=== PATIENT | female | born 1985 | race Caucasian/White ===

== ENCOUNTER 2016-12-09 13:47 | Emergency (ER) | payer BC, MEDICAID ==
[2016-12-09 15:25] VITALS: BP 122/69
--- NOTE | 2016-12-09 15:28 | UC ---
Throat Pain/Nasal Nguyễn HPI - HPI Summary HPI Summary: works a [employer] has had a sore throat, no fever for a couple of days - History of Current Complaint Chief Complaint: UCRespiratory Stated Complaint: SORE THROAT Time Seen by Provider: 12/09/16 15:26 Hx Obtained From: Patient Hx Last Menstrual Period: 12/05/16 ?: No Onset/Duration: Sudden Onset, Lasting Days - 2, Still Present Severity: Moderate Pain Intensity: 5 Pain Scale Used: 0-10 Numeric Cough: None Associated Signs & Symptoms: Positive: Hoarseness - Allergies/Home Medications Allergies/Adverse Reactions: Allergies Allergy/AdvReac Type Severity Reaction Status Date / Time Codeine Allergy Hives/Diff. Verified 12/09/16 15:25 Breathing/I tching NSAIDs AdvReac Severe CAN'T TAKE Verified 02/02/16 11:56 - GASTRIC BYPASS PMH/Surg Hx/FS Hx/Imm Hx Previously Healthy: No Endocrine History Of: Denies: Diabetes, Thyroid Disease Cardiovascular History Of: Denies: Cardiac Disorders, Hypertension Respiratory History Of: Denies: COPD, Asthma GI/ History Of: Denies: Ulcer - Surgical History Surgical History: Yes Surgery Procedure, Year, and Place: GASTRIC BYPASS 2004 - rou[place]n -[place]. Revision . [place] Teeth Other Surgical History: Gastric Bypass with revision - Family History Known Family History: Positive: None, Unknown Family History: no cardio vascular issues reported in family lineage - Social History Occupation: Employed Full-time Lives: With Family Alcohol Use: Rare Alcohol Amount: "socially" Substance Use Type: None, Prescribed Smoking Status (MU): Never Smoked Tobacco - Immunization History Most Recent Influenza Vaccination: last year Most Recent Tetanus Shot: utd Most Recent Pneumonia Vaccination: none Review of Systems Constitutional: Negative Skin: Negative Eyes: Negative ENT: Sore Throat Respiratory: Negative Cardiovascular: Negative Gastrointestinal: Negative Genitourinary: Negative Motor: Negative Neurovascular: Negative Musculoskeletal: Negative Neurological: Negative Psychological: Negative All Other Systems Reviewed And Are Negative: Yes Physical Exam Triage Information Reviewed: Yes Appearance: Well-Appearing, No Pain Distress, Obese Vital Signs: Initial Vital Signs Temp 97.8 F 12/09/16 15:20 Pulse 79 12/09/16 15:20 Resp 20 12/09/16 15:20 BP 122/69 04/06/17 15:20 Pulse Ox 100 12/09/16 15:20 Vital Signs Reviewed: Yes Eye Exam: Normal Eyes: Positive: Conjunctiva Clear ENT Exam: Normal ENT: Positive: Normal ENT inspection, Hearing grossly normal, Pharynx normal, TMs normal. Negative: Nasal congestion, Nasal drainage, Tonsillar swelling, Tonsillar exudate, Trismus, Muffled/hoarse voice Dental Exam: Normal Neck exam: Normal Neck: Positive: Supple, Nontender, No Lymphadenopathy Respiratory Exam: Normal Respiratory: Positive: Chest non-tender, Lungs clear, Normal breath sounds, No respiratory distress, No accessory muscle use Cardiovascular Exam: Normal Cardiovascular: Positive: RRR, No Murmur, Pulses Normal, Brisk Capillary Refill Musculoskeletal Exam: Normal Musculoskeletal: Positive: Strength Intact, ROM Intact, No Edema Neurological Exam: Normal Neurological: Positive: Alert, Muscle Tone Normal Psychological Exam: Normal Skin Exam: Normal Diagnostics - Laboratory Diagnostic Studies Completed/Ordered: RST(-) Throat Pain/Nasal Course/Dx - Course Assessment/Plan: tylenol, ibuprofen OTC cold remidies for symptom management follow with PCP - Differential Dx/Diagnosis Differential Diagnosis/HQI/PQRI: Influenza, Pharyngitis, Sinusitis, URI Provider Diagnoses: Viral Pharyngitis Discharge - Discharge Plan Condition: Stable Disposition: HOME Patient Education Materials: Laryngitis (ED), Viral Syndrome (ED) Referrals: No Shankar NP [Primary Care Provider] -
== END 2016-12-09 15:54 | disposition home or self-care (01) ==
LOC: UCEAST 13:47
DX: J02.9 Acute pharyngitis, unspecified (principal); Z88.5 Allergy status to narcotic agent; Z98.84 Bariatric surgery status
CPT/HCPCS: 87651; 99211; G0463

== ENCOUNTER 2017-01-05 14:15 | Emergency (ER) | payer BC, MEDICAID ==
[2017-01-05 14:55] VITALS: BP 134/83
--- NOTE | 2017-01-05 15:14 | UC ---
Bite Injury/Animal HPI - HPI Summary HPI Summary: Bitten by student at work in a school earlier today. Open areas on R 3rd finger and back of R hand. Denies pain or swelling. - History of Current Complaint Chief Complaint: UCUpperExtremity Stated Complaint: HAND INJURY BITE Time Seen by Provider: 01/05/17 15:00 Hx Obtained From: Patient Hx Last Menstrual Period: today started ?: No Severity Currently: Mild Severity Initially: Mild Onset/Duration: Sudden Onset Type of Bite: Human Has Animal Been Immunized?: Unknown Character: Puncture Alleviating Factor(s): Rest Associated Signs And Symptoms: Positive: Negative Animal Available for Observation: Yes Animal Control Notified: No - Risk Factors Infection/Sepsis Risk Factors: Negative - Allergies/Home Medications Allergies/Adverse Reactions: Allergies Allergy/AdvReac Type Severity Reaction Status Date / Time Codeine Allergy Hives/Diff. Verified 12/09/16 15:25 Breathing/I tching NSAIDs AdvReac Severe CAN'T TAKE Verified 02/02/16 11:56 - GASTRIC BYPASS Home Medications: Home Medications traMADol TAB* [Ultram*] 50 mg PO PRN 01/05/17 [History] PMH/Surg Hx/FS Hx/Imm Hx Previously Healthy: Yes Endocrine History Of: Denies: Diabetes, Thyroid Disease Cardiovascular History Of: Denies: Cardiac Disorders, Hypertension Respiratory History Of: Denies: COPD, Asthma GI/ History Of: Denies: Ulcer - Surgical History Surgical History: Yes Surgery Procedure, Year, and Place: GASTRIC BYPASS 2004 - [place]. Revision . [place] Te[facility] Other Surgical History: Gastric Bypass with revision - Family History Known Family History: Positive: None, Unknown Family History: no cardio vascular issues reported in family lineage - Social History Occupation: Employed Full-time Lives: With Family Alcohol Use: Rare Alcohol Amount: "socially" Substance Use Type: None Smoking Status (MU): Never Smoked Tobacco - Immunization History Most Recent Influenza Vaccination: last year Most Recent Tetanus Shot: utd Most Recent Pneumonia Vaccination: none Review of Systems Constitutional: Negative Skin: Other - bite to R hand Eyes: Negative ENT: Negative Respiratory: Negative Cardiovascular: Negative Gastrointestinal: Negative Genitourinary: Negative Motor: Negative Neurovascular: Negative Musculoskeletal: Negative Neurological: Negative Psychological: Negative All Other Systems Reviewed And Are Negative: Yes Physical Exam Triage Information Reviewed: Yes Appearance: Well-Appearing, No Pain Distress, Obese Vital Signs: Initial Vital Signs Temp 98.6 F 01/05/17 14:51 Pulse 84 01/05/17 14:51 Resp 16 01/05/17 14:51 BP 134/83 01/05/17 14:51 Pulse Ox 100 01/05/17 14:51 Vital Signs Reviewed: Yes Eye Exam: Normal Eyes: Positive: Conjunctiva Clear ENT Exam: Normal ENT: Positive: Normal ENT inspection, Hearing grossly normal, Pharynx normal, TMs normal Dental Exam: Normal Neck exam: Normal Neck: Positive: Supple, Nontender, No Lymphadenopathy Respiratory Exam: Normal Respiratory: Positive: Chest non-tender, Lungs clear, Normal breath sounds, No respiratory distress, No accessory muscle use Cardiovascular Exam: Normal Cardiovascular: Positive: RRR, No Murmur Musculoskeletal Exam: Normal Musculoskeletal: Positive: Strength Intact, ROM Intact, No Edema Neurological Exam: Normal Neurological: Positive: Alert Psychological Exam: Normal Skin Exam: Other - two small PW to dorsum of R hand, near 3rd PIP joint and near 3rd MCP. No bleeding, swelling, redness, drainage, or streaking. Bite Injury Course/Dx - Differential Dx/Diagnosis Provider Diagnoses: R hand bite wound. Elevated blood pressure due to stress Discharge - Discharge Plan Condition: Stable Disposition: HOME Prescriptions: Amoxicillin/Clavulanate TAB* [Augmentin TAB 875*] 875 mg PO BID #10 tab Patient Education Materials: Human Bite (ED) Additional Instructions: Come back right away if you develop significant redness, pain, swelling, or streaking from the area.
[2017-01-05] MEDS ORDERED: Tetan/Diph/Pertus SYR(Tdap)* 0.5 ML SYR(BOOSTRIX) use SYR IM ONE (15:18)
== END 2017-01-05 15:30 | disposition home or self-care (01) ==
LOC: UCEAST 14:15
DX: S61.431A Puncture wound without foreign body of right hand, initial encounter (principal); W50.3XXA Accidental bite by another person, initial encounter; Y93.89 Activity, other specified; Y92.219 Unspecified school as the place of occurrence of the external cause; Y99.0 Civilian activity done for income or pay; Z23 Encounter for immunization; R03.0 Elevated blood-pressure reading, without diagnosis of hypertension; E66.9 Obesity, unspecified; Z88.6 Allergy status to analgesic agent; Z88.5 Allergy status to narcotic agent; Z98.84 Bariatric surgery status
CPT/HCPCS: 36415; 86704; 86706; 90715; 96372; 99212; G0463

== ENCOUNTER 2017-02-08 15:40 | Emergency (ER) | payer BC, MEDICAID ==
[2017-02-08 15:55] VITALS: BP 147/74
--- NOTE | 2017-02-08 16:25 | UC ---
Complaint Female HPI - HPI Summary HPI Summary: 2 DAYS OF VAGINAL ITCHING. NOTICED ODOR TODAY. PT ON MENSES CURRENTLY. HAD SOME URINARY FREQUENCY BUT NO BURNING OR URGENCY. NO FEVER, BACK PAIN OR NAUSEA. FEELS A BIT BLOATED. - History Of Current Complaint Chief Complaint: UCGU Stated Complaint: PRIVATE-IRRITATION Time Seen by Provider: 02/08/17 16:08 Hx Obtained From: Patient Hx Last Menstrual Period: January 05, 2017..on mirina Onset/Duration: Gradual Onset, Lasting Days, Still Present Timing: Constant Severity Initially: Moderate Severity Currently: Moderate Pain Intensity: 6 Pain Scale Used: 0-10 Numeric Character: Burning Aggravating Factor(s): Urination Alleviating Factor(s): Nothing Associated Signs And Symptoms: Positive: Negative - Allergies/Home Medications Allergies/Adverse Reactions: Allergies Allergy/AdvReac Type Severity Reaction Status Date / Time Codeine Allergy Hives/Diff. Verified 02/08/17 15:55 Breathing/I tching NSAIDs AdvReac Severe CAN'T TAKE Verified 02/08/17 15:55 - GASTRIC BYPASS PMH/Surg Hx/FS Hx/Imm Hx Previously Healthy: Yes - Surgical History Surgical History: Yes Surgery Procedure, Year, and Place: GASTRIC BYPASS 2004 - rou[place]n [place]. Revision . [place] [facility] Other Surgical History: Gastric Bypass with revision - Family History Known Family History: Positive: Unknown - ADOPTED. PT DOES NOT KNOW FAM HX - Social History Alcohol Use: Rare Alcohol Amount: "socially" Substance Use Type: None Smoking Status (MU): Never Smoked Tobacco - Immunization History Most Recent Influenza Vaccination: last year Most Recent Tetanus Shot: utd Most Recent Pneumonia Vaccination: none Review of Systems Constitutional: Negative Respiratory: Negative Cardiovascular: Negative Gastrointestinal: Abdominal Pain Genitourinary: Other - VAGINAL IRRITATION, ODOR All Other Systems Reviewed And Are Negative: Yes Physical Exam Triage Information Reviewed: Yes Appearance: Well-Appearing, No Pain Distress, Well-Nourished, Obese Vital Signs: Initial Vital Signs Temp 98.1 F 02/08/17 15:52 Pulse 78 02/08/17 15:52 Resp 18 02/08/17 15:52 BP 147/74 02/08/17 15:52 Pulse Ox 100 02/08/17 15:52 Vital Signs Reviewed: Yes Eyes: Positive: Conjunctiva Clear ENT: Positive: Hearing grossly normal Neck: Positive: Supple Respiratory: Positive: No respiratory distress, No accessory muscle use Cardiovascular: Positive: Pulses Normal Abdomen Description: Positive: Soft, Other: - SUPRAPUBIC TTP. Negative: CVA Tenderness (R), CVA Tenderness (L), Distended, Guarding Musculoskeletal: Positive: No Edema Neurological: Positive: Alert Psychological: Positive: Age Appropriate Behavior Skin: Negative: rashes Diagnostics - Laboratory Diagnostic Studies Completed/Ordered: URINE DIP SP.GR. 1.030, 1+ LEUKS, TRACE BLOOD Complaint Female Dx - Differential Dx/Diagnosis Provider Diagnoses: VAGINITIS Discharge - Discharge Plan Condition: Stable Disposition: HOME Prescriptions: Metronidazole [Flagyl 500 MG TAB] 500 mg PO BID #14 tab Patient Education Materials: Bacterial Vaginosis (ED), Vaginitis (ED) Referrals: No Shankar NP [Primary Care Provider] - Additional Instructions: VAGINAL SWAB AND URINE SENT FOR TESTING. WE WILL CALL YOU IF WE NEED TO MODIFY YOUR TREATMENT.
--- NOTE | 2017-02-09 18:59 | UC ---
Progress - Progress Note Progress Note: POS GARDNERELLA, POS JESUS. ON METRONIDAZOLE. RX'D DIFLUCAN FOR JESUS. SENT TO [facility]. PLEASE NOTIFY PT.
== END 2017-02-08 16:50 | disposition home or self-care (01) ==
LOC: UCEAST 15:40
DX: N76.0 Acute vaginitis (principal)
CPT/HCPCS: 81003; 87086; 87480; 87510; 87660; 87661; 99212; G0463

== ENCOUNTER 2017-10-16 14:52 | Emergency (ER) | payer BC, MEDICAID ==
[2017-10-16 17:49] VITALS: BP 122/75
--- NOTE | 2017-10-16 18:08 | UC ---
Respiratory Complaint HPI - HPI Summary HPI Summary: 32 yo female with severe myalgias and fever since this AM nausea diarrhea x 4 headache no URI symptoms exposure to flu no abd pain - History of Current Complaint Chief Complaint: UCGeneralIllness Stated Complaint: FLU-LIKE SYMPTOMS,DIARRHEA Time Seen by Provider: 10/16/17 18:01 Hx Obtained From: Patient Hx Last Menstrual Period: 3 weeks ago Onset/Duration: Sudden Onset, Lasting Hours Severity Initially: Moderate Severity Currently: Severe Pain Intensity: 8 Pain Scale Used: 0-10 Numeric Character: Cough: Nonproductive Aggravating Factors: Nothing Associated Signs And Symptoms: Positive: Fever, Chills, Nasal Congestion - Allergies/Home Medications Allergies/Adverse Reactions: Allergies Allergy/AdvReac Type Severity Reaction Status Date / Time MS Codeine [Codeine] Allergy Hives/Diff. Verified 10/16/17 17:50 Breathing/I tching MS NSAIDs [NSAIDs] AdvReac Severe CAN'T TAKE Verified 10/16/17 17:50 - GASTRIC BYPASS PMH/Surg Hx/FS Hx/Imm Hx Previously Healthy: Yes - Surgical History Surgical History: Yes Surgery Procedure, Year, and Place: GASTRIC BYPASS 2004 - [place]n [place]. Revision . [place] Te[facility] Other Surgical History: Gastric Bypass with revision - Family History Known Family History: Positive: Unknown - ADOPTED. PT DOES NOT KNOW FAM HX Family History: no cardio vascular issues reported in family lineage - Social History Alcohol Use: Rare Alcohol Amount: "socially" Substance Use Type: None Smoking Status (MU): Never Smoked Tobacco - Immunization History Most Recent Influenza Vaccination: last year Most Recent Tetanus Shot: utd Most Recent Pneumonia Vaccination: none Review of Systems Constitutional: Fever, Chills, Fatigue Skin: Negative Eyes: Negative ENT: Negative Respiratory: Negative Cardiovascular: Negative Gastrointestinal: Diarrhea, Nausea Genitourinary: Negative Motor: Negative Neurovascular: Negative Musculoskeletal: Myalgia - ++++ Neurological: Headache Psychological: Negative Is Patient Immunocompromised?: No All Other Systems Reviewed And Are Negative: Yes Physical Exam Triage Information Reviewed: Yes Appearance: Well-Appearing - not toxic, No Pain Distress, Well-Nourished, Other : - BMI 62 Vital Signs: Initial Vital Signs Temp 101.1 F 10/16/17 17:46 Pulse 132 10/16/17 17:46 Resp 16 02/11/18 17:46 BP 122/75 10/16/17 17:46 Pulse Ox 100 10/16/17 17:46 Vital Signs Reviewed: Yes Eyes: Positive: Conjunctiva Clear ENT: Positive: Hearing grossly normal, Uvula midline. Negative: Nasal drainage , TMs normal, Muffled voice, Hoarse voice, Sinus tenderness Neck: Positive: Supple, Nontender, No Lymphadenopathy Respiratory: Positive: Lungs clear, Normal breath sounds, No respiratory distress Cardiovascular: Positive: RRR, No Murmur Abdomen Description: Positive: Nontender - to deep palpation, No Organomegaly, Soft. Negative: CVA Tenderness (R), CVA Tenderness (L), Distended, Guarding, Peritoneal Signs, Pulsatile Mass, Splenomegaly Bowel Sounds: Positive: Hyperactive Musculoskeletal: Positive: ROM Intact, No Edema Neurological: Positive: Alert Psychological Exam: Normal Skin Exam: Normal UC Diagnostic Evaluation - Laboratory Pertinent Lab Values Are: WNL - (-) influenza O2 Sat by Pulse Oximetry: 100 - normal/not hypoxic Respiratory Course/Dx - Differential Dx/Diagnosis Provider Diagnoses: acute diarrhea. suspect gastroenteritis Discharge - Discharge Plan Condition: Stable Disposition: HOME Patient Education Materials: Acute Diarrhea (ED) Forms: *Work Release Referrals: No Shankar NP [Primary Care Provider] - 1 Day (recheck in 1-2 days) Additional Instructions: to ER for constant abd pain bring in stool for studies to ER for new or worsening symptoms
== END 2017-10-16 18:45 | disposition home or self-care (01) ==
LOC: UCEAST 14:52
DX: R19.7 Diarrhea, unspecified (principal); M79.1 Myalgia; R50.9 Fever, unspecified; R51 Headache; R11.0 Nausea; Z98.84 Bariatric surgery status; Z88.6 Allergy status to analgesic agent; Z88.5 Allergy status to narcotic agent
CPT/HCPCS: 87502; 99212; G0463

== ENCOUNTER 2018-06-14 14:32 | Emergency (ER) | payer BC, MEDICAID ==
[2018-06-14 16:11] VITALS: BP 138/74
--- NOTE | 2018-06-14 16:32 | ED ---
Back Pain - HPI Summary HPI Summary: hx. of low back pain , intermittently here for another episode of symptoms, no numbness or weakness of the lower extremities, no perineal numbness or urinary or fecal incontinence . no change with coughing or sneezing, pain more left sided than right - History of Current Complaint Chief Complaint: UCBackPain Stated Complaint: LOWER BACK PAIN Time Seen by Provider: 06/14/18 16:14 Hx Obtained From: Patient Hx Last Menstrual Period: 05/14/18 Onset/Duration: Lasting Hours Timing: Lasting Hours Back Pain Location: Is Discrete @ Severity Initially: Moderate Severity Currently: Moderate Pain Intensity: 8 Character: Sharp, Aching Alleviating Symptom(s): Rest - Allergies/Home Medications Allergies/Adverse Reactions: Allergies Allergy/AdvReac Type Severity Reaction Status Date / Time codeine Allergy Hives Verified 06/14/18 16:11 NSAIDS (Non-Steroidal Allergy See Comment Verified 06/14/18 16:11 Anti-Inflamma PMH/Surg Hx/FS Hx/Imm Hx Previously Healthy: Yes Endocrine/Hematology History: Denies: Hx Diabetes, Hx Thyroid Disease Cardiovascular History: Denies: Hx Hypertension Respiratory History: Denies: Hx Asthma, Hx Chronic Obstructive Pulmonary Disease (COPD) GI History: Denies: Hx Ulcer History: Reports: Other Problems/Disorders - UTI. - Surgical History Surgery Procedure, Year, and Place: GASTRIC BYPASS 2004 - rou-n -y. Revision . [place] [facility] Infectious Disease History: No Infectious Disease History: Denies: Hx Clostridium Difficile, Hx Hepatitis, Hx Human Immunodeficiency Virus (HIV), Hx of Known/Suspected MRSA, Hx Shingles, Hx Tuberculosis, Hx Known/ Suspected VRE, Hx Known/Suspected VRSA, History Other Infectious Disease, Traveled Outside the [place] in Last 30 Days - Family History Known Family History: Positive: None, Unknown - ADOPTED. PT DOES NOT KNOW FAM HX Family History: no cardio vascular issues reported in family lineage - Social History Alcohol Use: Rare Alcohol Amount: "socially" Hx Substance Use: No Substance Use Type: Reports: None Hx Tobacco Use: No Smoking Status (MU): Never Smoked Tobacco Review of Systems Constitutional: Negative Eyes: Negative ENT: Negative Cardiovascular: Negative Respiratory: Negative Gastrointestinal: Negative Genitourinary: Negative Musculoskeletal: Negative Skin: Negative Neurological: Negative Psychological: Normal All Other Systems Reviewed And Are Negative: Yes Physical Exam Triage Information Reviewed: Yes Vital Signs On Initial Exam: Initial Vitals Temp Pulse Resp BP Pulse Ox 36.8 C 117 20 138/74 99 06/14/18 16:06 06/14/18 16:06 06/14/18 16:06 06/14/18 16:06 06/14/18 16:06 Vital Signs Reviewed: Yes Appearance: Positive: Well-Appearing Skin: Positive: Warm, Dry Head/Face: Positive: Normal Head/Face Inspection Eyes: Positive: Normal ENT: Positive: Normal ENT inspection Dental: Positive: Percussion Tenderness @ Neck: Positive: Supple Respiratory/Lung Sounds: Positive: Clear to Auscultation Cardiovascular: Positive: Normal Neurological: Positive: Normal, Sensory/Motor Intact - normal dorsiflexors of the great toes, Diagnostics - Vital Signs Vital Signs Temp Pulse Resp BP Pulse Ox 06/14/18 16:06 36.8 C 117 20 138/74 99 - Laboratory Lab Statement: Any lab studies that have been ordered have been reviewed, and results considered in the medical decision making process. Back Pain Course/Dx - Diagnoses Provider Diagnoses: Sciatica associated with disorder of lumbar spine Discharge - Sign-Out/Discharge Documenting (check all that apply): Patient Departure All imaging exams completed and their final reports reviewed: No Studies - Discharge Plan Condition: Good Disposition: HOME Prescriptions: Cyclobenzaprine TAB* [Flexeril 10 MG TAB*] 10 mg PO TID PRN #30 tab PRN Reason: Pain Lidocaine PATCH 5%* [Lidoderm 5% Patch*] 1 patch TRANSDERM DAILY #1 box Patient Education Materials: Sciatica (ED) Referrals: No Shankar NP [Primary Care Provider] - - Billing Disposition and Condition Condition: GOOD Disposition: Home
[2018-06-14] MEDS ORDERED: Ketorolac INJ* 60 MG/2 ML VIAL IM ONE (16:36)
== END 2018-06-14 16:58 | disposition home or self-care (01) ==
LOC: UCEAST 14:32
DX: M51.17 Intervertebral disc disorders with radiculopathy, lumbosacral region (principal); Z88.6 Allergy status to analgesic agent; Z88.5 Allergy status to narcotic agent
CPT/HCPCS: 96372; 99212; G0463; J1885

== ENCOUNTER 2018-12-24 12:53 | Emergency (ER) | payer BC, MEDICAID ==
--- OUTSIDE RECORDS SUMMARY | 2018-12-24 12:58 | XMS REPORT | Continuity of Care Document ---
:1985 Author Organization [facility] Address [address], [place] [id number] Phone Care Team Providers Name Role Phone Mia RIOS, Mei Unavailable Unavailable Allergies, Adverse Reactions, Alerts Substance Reaction Status codeine Itching Active ibuprofen Unknown Active Medications Medication Instructions Dosage Effective Dates Status Comments (start - stop) metronidazole 500 mg 1 tab po bid x 7d - Active tablet (#14) fluconazole 150 mg 1 po x 1 after - Active tablet completion of antibiotics (#1) Mirena 20 mcg/24 hr (5 Insert IU with - Active years) intrauterine paracervical block device Problems Condition Effective Dates (start - Clinical Status Comments stop) Frequency of micturition Acute vaginitis Encounter for screening for oth infec/parastc diseases Unsp abnormal cytological findings in specimens from vagina Acute vaginitis Encounter for test, result negative Encounter for routine checking of intrauterine contracep dev Encntr screen for infections w sexl mode of transmiss Noninflammatory disorder of vagina, unspecified MENU PLANNER Exam, Routine WWE STI Screening Yeast-vulvovaginal IUC Insertion Procedures Procedure Date URINALYSIS, DIP NONAUTO W/O SCOPE OFFICE/OUTPATIENT VISIT, EST WET SMEAR ASSAY OF BODY FLUID-PH OTHER Medical Services UTI TREATMENT Contraceptive Tax Form Preparer.Svc. Other Tax Form Preparer.Svc. STI METRONIDAZOLE 500 MG #14 FLUCONAZOLE 150 MG #1 Results Test Name Date and Time Measure Units Reference Range Abnormal Flag Status Comments Panel Description: Wet Mount Final Wet Mount 15:00:29 Hyphae/Ksenia: noBudding yeast: Final noTrich: noClue cells: yes (>=20%)WBCs: yes (moderate)Amine/Whiff test: positivepH: 5.5 Panel Description: Urine Dipstick Final Urine Dipstick 14:32:48 Glucose: negativeKetones: Final negativeProtein: traceNitrite: negativeLeukocytes: negativeBlood: negativepH: 6.0 Advance Directives Directive Yes / No Effective Date File Name No information Encounters Encounter Practice Location Reason(s) Diagnoses Date Provider Providers Description For Visit Copied on Encounter OFFICE/OUTPA [facility] Vaginal Frequency of [place] Referring TIENT VISIT, [facility] [place] Discharge micturitionAcute miya Mei. Provider: EST [facility] (chief vaginitisEncount 9 [address] [place] [place] complaint) er for screening , [place], David J, [facility], [facility] [place], [address]. [address] Symptoms infec/parastc tel:[phone], [address], [place], (F) (chief diseasesUnsp [address] [place], [place], complaint) [place], [address]. [id number], cytological tel:[phone] [place] findings in [id number] tel:[phone] specimens from [id number] vagina [facility] Acute vaginitis [facility] [place] Kiley. [address], [place], [place], [place], [address]. [address] tel:[phone] [facility] [place], [address] [place], [id number], [place] tel:[phone] [facility] Encounter for Jamie Lainez. Referring [facility] [place] test, [address] Provider: [facility] result 8 , [place], [place], [address], [place] [address] [place] [address] for routine [place]. [address] checking of St, St, [place], intrauterine [place], [place], [place], [address]. [id number], devEncntr screen [place] for infections w tel:[phone] [place] of [id number] transmissNoninfl ammatory disorder of vagina, unspecified [facility] MENU PLANNER Exam, [place] [facility] [place] Routine WWESTI miya Sueane. [place] ScreeningYeast-v 5 [address], [place], [facility], [address] [place], [address]. [address] tel:[phone] St, [place], [address] [place], [id number], [place] tel:[phone] [facility] IUC Insertion Apr- [facility] [place] Natasha. [address], [place], [place], [facility], [address] [address]. [address] tel:[phone] , [place], [address] [place], [id number], [place] tel:[phone] [facility] [place] [facility] [place]. [address], [place], [place], [facility], [address] [address]. [address] tel:[phone] , [place], [address] [place], [id number], [place] tel:[phone] Family History Family Member Diagnosis Age At Onset No information Immunizations Vaccine Date Status Comments hepatitis A vaccine, adult dosage administered Source: Other Registry Hep A and Hep B administered Source: Other Registry Payers Payer name Insurance type Covered green party ID Authorization(s) [facility] [id number] Medicaid [place] [id number] Social History Type Description Quantity Date Captured Comments Alcohol Use Details Unknown Caffeine Use Details Unknown Tobacco Use Status Never smoked tobacco Smoking Status Never smoker Non-Smoking Tobacco : No Details Available : No Details Available 2018 Use Details Sex Female Vital Signs Date / Height Weight BMI Pulse Blood Temperature Respiratory Body Head BMI Pulse Inhaled Time: Rate Pressure Rate Surface Circumference percentile Ox Ox Area No information Chief Complaint And Reason For Visit Most recent encounter only, dated '12/14/2018 13:50'. Vaginal Discharge ( chief complaint)Urinary Symptoms (F) (chief complaint) Reason For Referral Reason For Referral No information Plan Of Treatment Date Type Action Status No information History Of Present Illness Encounter Date Complaint History Of Present Illness No information Functional Status Date Functional Assessment No information Medications Administered Medication Instructions Dosage Effective Dates (start - stop) Status Comments No information Instructions Date Instruction Additional Information No information Assessments Type Assessment Date assessment Frequency of micturition assessment Acute vaginitis assessment Encounter for screening for oth infec/parastc diseases assessment Unsp abnormal cytological findings in specimens from vagina Goals Health Concern Goal Type Priority Status Date No information Medical Equipment Description Device [place] Device Identifier Effective Dates (start - stop ) Status No information Mental Status Date Cognitive Assessment No information Health Concerns Observation Date No information Concern Status Date No information
[2018-12-24 13:01] VITALS: BP 119/68
--- NOTE | 2018-12-24 13:13 | UC ---
Complaint Female HPI - HPI Summary HPI Summary: recently treated for BV now has irritation after sex that she wants checked - History Of Current Complaint Chief Complaint: UCGU Stated Complaint: POSSIBLE YEAST INFECTION Time Seen by Provider: 12/24/18 12:54 Hx Obtained From: Patient Hx Last Menstrual Period: 05/14/18 ?: No Onset/Duration: Sudden Onset Timing: Constant Pain Intensity: 8 Pain Scale Used: 0-10 Numeric Character: Burning Aggravating Factor(s): Movement Alleviating Factor(s): Nothing Associated Signs And Symptoms: Positive: Negative - Allergies/Home Medications Allergies/Adverse Reactions: Allergies Allergy/AdvReac Type Severity Reaction Status Date / Time codeine Allergy Hives Verified 12/24/18 13:01 NSAIDS (Non-Steroidal Allergy See Comment Verified 12/24/18 13:01 Anti-Inflamma Home Medications: Home Medications L.acidoph,Paracasei, B.lactis [Probiotic] 1 each PO 12/24/18 [History] Multivitamin [Multivitamins] 1 cap PO 12/24/18 [History] PMH/Surg Hx/FS Hx/Imm Hx Previously Healthy: Yes - Surgical History Surgical History: Yes Surgery Procedure, Year, and Place: GASTRIC BYPASS 2004 - [place] -[place]. Revision . [place] Teeth Other Surgical History: Gastric Bypass with revision - Family History Known Family History: Positive: None, Unknown - ADOPTED. PT DOES NOT KNOW FAM HX Family History: no cardio vascular issues reported in family lineage - Social History Occupation: Employed Full-time Lives: With Family Alcohol Use: Occasionally Alcohol Amount: "socially" Substance Use Type: None Smoking Status (MU): Never Smoked Tobacco - Immunization History Most Recent Influenza Vaccination: last year Most Recent Tetanus Shot: utd Most Recent Pneumonia Vaccination: none Review of Systems All Other Systems Reviewed And Are Negative: Yes Constitutional: Positive: Negative Skin: Positive: Negative Eyes: Positive: Negative ENT: Positive: Negative Respiratory: Positive: Negative Cardiovascular: Positive: Negative Gastrointestinal: Positive: Negative Genitourinary: Positive: Negative Motor: Positive: Negative Neurovascular: Positive: Negative Musculoskeletal: Positive: Negative Neurological: Positive: Negative Psychological: Positive: Negative Is Patient Immunocompromised?: No Physical Exam Triage Information Reviewed: Yes Appearance: Well-Appearing, No Pain Distress, Well-Nourished Vital Signs: Initial Vital Signs Temp 98.7 F 12/24/18 12:57 Pulse 76 12/24/18 12:57 Resp 18 12/24/18 12:57 BP 119/68 12/24/18 12:57 Pulse Ox 100 12/24/18 12:57 Vital Signs Reviewed: Yes Eye Exam: Normal Eyes: Positive: Conjunctiva Clear ENT Exam: Normal ENT: Positive: Normal ENT inspection, Hearing grossly normal. Negative: Trismus , Muffled voice, Hoarse voice Dental Exam: Normal Neck exam: Normal Neck: Positive: Supple, Nontender Respiratory Exam: Normal Respiratory: Positive: Chest non-tender, No respiratory distress, No accessory muscle use Cardiovascular Exam: Normal Cardiovascular: Positive: RRR, Pulses Normal, Brisk Capillary Refill Pelvic Exam: Positive: Other - abrasion of skin near clitoris Musculoskeletal Exam: Normal Musculoskeletal: Positive: Strength Intact, ROM Intact, No Edema Neurological Exam: Normal Neurological: Positive: Alert, Muscle Tone Normal Psychological Exam: Normal Skin Exam: Normal Complaint Female Dx - Course Course Of Treatment: mild soap and water wash, tylenol, ibuprofen for pain follow with pcp as needed - Differential Dx/Diagnosis Provider Diagnosis: Clitoral irritation Discharge - Sign-Out/Discharge Documenting (check all that apply): Patient Departure All imaging exams completed and their final reports reviewed: No Studies - Discharge Plan Condition: Stable Disposition: HOME Patient Education Materials: Abrasion (ED) Referrals: Albino Sebastian MD [Medical Doctor] - If Needed - Billing Disposition and Condition Condition: STABLE Disposition: Home
== END 2018-12-24 13:44 | disposition home or self-care (01) ==
LOC: UCEAST 12:53
DX: N90.89 Other specified noninflammatory disorders of vulva and perineum (principal); S30.814A Abrasion of vagina and vulva, initial encounter; X58.XXXA Exposure to other specified factors, initial encounter; Y92.9 Unspecified place or not applicable; Z88.6 Allergy status to analgesic agent; Z88.5 Allergy status to narcotic agent
CPT/HCPCS: 81003; 84702; 87086; 99212; G0463